=== PATIENT | male | born 1980 | race African-American/Black ===

== ENCOUNTER 2022-09-25 23:45 | Emergency (ER) | payer OTHER ==
[~2022-09-25] VITALS: Ht 193 cm; Wt 140.0 kg
[2022-09-26 00:08] VITALS: BP 146/90
== END 2022-09-26 03:50 | disposition left against medical advice (07) ==
LOC: ER 23:45
DX: Z53.21 Procedure and treatment not carried out due to patient leaving prior to being seen by health care provider (principal)